=== PATIENT | male | born 1980 | race Caucasian/White ===

== ENCOUNTER → 2016-08-11 | Outpatient (CLI) | payer BC ==
[~2016-08-11] MED LIST: AMT50 PO; CBCI IV; CITA10TA4 PO; FINA1TAB3 PO; LEVO125T72 PO
--- NOTE | 2016-08-11 10:28 | DIAGNOSTIC IMAGING REPORT ---
ULTRASOUND OF THE SPLEEN CLINICAL HISTORY: Left upper quadrant abdominal pain. COMPARISON STUDY: No priors. FINDINGS: Real-time, grayscale, and color flow sonography of the spleen is performed. The spleen is normal in size and homogeneous in echotexture, measuring 10.4 cm in length. No splenic lesion is seen. There is no perisplenic fluid. The splenic vessels at the hilum appear patent. A 1.6 cm simple cyst is incidentally noted in the adjacent left kidney. IMPRESSION: Unremarkable sonographic assessment of the spleen. Electronically signed by: Aaron Abreu M.D. 08/11/2016 10:27 AM Dictated Date/Time: 08/11/2016 10:26 AM
== END | disposition home or self-care (01) ==
LOC: C.ULTRBC 10:06
PROVIDERS: ATTEND Nurse Practitioner Family
DX: R10.12 Left upper quadrant pain (principal)

== ENCOUNTER 2021-05-10 12:26 | Inpatient (IN) ==
--- NOTE | 2021-05-10 13:09 | Emergency Department Note ---
Impression & Plan Bursitis, olecranon, Cellulitis of left elbow, History of staph infection ED Provider Note CHIEF COMPLAINT: L elbow pain/swelling HISTORY OF PRESENT ILLNESS: Gordo Lombardi is a 41 year old male with history of previous staph infections who presents to the Emergency Department for evaluation of pain and swelling to his left elbow which he noticed when he woke up this morning. Currently, he rates his discomfort as a 6/10 which worsens with attempts of movement and to palpation of the area. The patient denies sustaining any injuries to his elbow and states that it was not painful or swollen before he went to bed last night. He also does not believe that he was bitten by any insects. The patient does have history of staph infections two previous times and states that he received treatment with IV Daptomycin x 3 weeks a few years ago. He states that his symptoms feel similar to that time. The patient states that he hasn't been feeling well over the past few days but thought that it was due to not getting enough sleep. He did develop a fever of 38C today which he states is high for him. He otherwise denies chest pain, palpitations, shortness of breath, abdominal pain, nausea, vomiting, diarrhea or urinary symptoms. REVIEW OF SYSTEMS: 10 systems were reviewed and were negative unless otherwise stated in HPI as above PHYSICAL EXAM: VITALS: Vitals are noted on the nurse's note and reviewed by myself. Mildly tachycardic 110 BPM and hypertensive 147/92, otherwise stable. General: Resting in chair, appears uncomfortable HEENT: Normocephalic, PERRL, EOMI, mucous membranes moist, oropharynx clear Neck: Non-tender, ROM intact without pain Resp: Good inspiratory effort on room air, lung sounds clear bilaterally CV: Regular rate and rhythm, peripheral pulses palpated Abd: Soft, non-tender Integumentary/MSK: Left elbow is edematous with overlying erythema. Fluctuant and tender to palpation. Edema appears to be tracking up into the upper arm but no lymphangitis. Warm to the touch. ROM limited secondary to pain. Left shoulder, forearm, wrist and hand are nontender and ROM remains intact here without pain or difficulty. Radial pulse and sensation intact. There is a small superficial abrasion to the dorsal aspect of the left wrist without surrounding erythema or edema. No other appreciable rashes or wounds, moving all other extremities without apparent pain or difficulty Neuro: Awake, alert and oriented x 3, interacting and answering questions appropriately Differential diagnosis includes fracture, dislocation, subluxation, cellulitis, bursitis, septic joint, Lyme disease among others were considered. EMERGENCY DEPARTMENT COURSE: Physical exam and history were performed. Nursing triage notes, EMR, and medication list were personally reviewed. Vital signs were reviewed. He was mildly tachycardic with a heart rate of 110 bpm, mildly hypertensive with BP 147/92. Remains afebrile 30 6.8C, maintaining oxygen saturations at 96% on room air with resp 20/min. Patient appears to have increased pain and swelling to his left elbow which he noticed when he woke up this morning. No known injuries or insect bites. Of note, he did state that he has been feeling generally unwell over the past few days and had a temperature of 38C today. He does have a history of staph infection for which he previously received IV daptomycin x3 weeks several years ago. See exam as above. The patient was offered pain medication but declined at this time. IV access was established and labs were reviewed by myself as below. Of note, he did have a leukocytosis with a WBC of 11.39. No concerns for anemia with hemoglobin 15.0. Electrolytes WNL. Renal indices stable. LFTs nondiagnostic. Lactate not elevated 0.5. ESR WNL at 3. CRP mildly elevated at 0.71. X-ray of the elbow was obtained and reviewed by radiologist and myself as below. This was negative for acute osseous pathology or intra-articular effusion to suggest septic arthritis, however there was characteristics of olecranon bursitis. This is concerning for possible septic bursitis given his clinical findings and history of previous staph infection. I discussed the above findings with my attending, Dr. Mckinney, who was involved throughout the patient's course of care, the patient will benefit from continued treatment with IV antibiotics. The patient agreed with this treatment plan. IV Rocephin 2g and Vancomycin 2g was ordered. Dr. Colon of the [facility] Hospitalist group was contacted and agreed to evaluate the patient for further management. Dr. Colon of Orthopedics was also consulted. The patient verbalized his understanding and agreement with the treatment plan a s above. The chart was completed utilizing [employer] Voice Recognition Software. Grammatical errors, random word insertions, pronoun errors, and incomplete sentences are an occasional consequence of this system due to software limitations, ambient noise, and hardware issues. Any formal questions or concerns about the content, text, or information contained within the body of this dictation should be directly addressed to the provider for clarification. Past Med/Surg History Medical History ADHD Alopecia Anxiety Depression Gram positive septicemia Hypothyroidism Surgical History No history of previous surgery No pertinent past surgical history Social History Smoking Status: Never smoker Feels Safe at Home: Yes Allergies Allergies Allergy/AdvReac Type Severity Reaction Status Date / Time Bactrim Allergy Intermediate became Unverified 08/21/15 22:55 completely red sulfamethoxazole [Bactrim] Allergy Intermediate became Unverified 05/10/21 14:52 completely red trimethoprim [Bactrim] Allergy Intermediate became Unverified 05/10/21 14:52 completely red Home Meds Home Medications Medication Instructions Recorded Confirmed dextroamphetamine-amphetamine 20 20 mg PO TID 01/16/21 05/10/21 mg tablet finasteride 1 mg tablet 1 mg PO QAM 01/16/21 05/10/21 levothyroxine 137 mcg tablet 137 mcg PO QAM 01/16/21 05/10/21 Results & Data (ED) Vital Signs Vital Signs - 24 hr 05/10/21 12:30 05/10/21 13:36 05/10/21 14:00 Temperature 36.8 C Temperature Source Temporal Artery Scan Pulse Rate 110 H 99 H 95 H Pulse Rate from SpO2 Sensor 97 H 99 H Pulse Rhythm Regular Pulse Strength Normal Respiratory Rate 20 20 15 Respiratory Effort / Characteristics Non-Labored Respiratory Depth Normal Blood Pressure 147/92 H 134/87 Blood Pressure Mean 110 102 Blood Pressure Position Sitting Pulse Oximetry 96 97 96 Oxygen Delivery Method Room Air Sepsis Recent Fever Within 48 Hours Yes Sepsis New/Unexplained Change in Mental Status N/A Sepsis Action Taken by Nursing No Action Required Laboratory Data Result diagrams: 05/10/21 13:29 05/10/21 13:29 Lab Results 05/10/21 05/10/21 05/10/21 Range/Units 13:29 13:29 13:29 WBC 11.39 H (4.8-10.8) K/uL RBC 4.68 L (4.7-6.1) M/uL Hgb 15.0 (14.0-18.0) g/dL Hct 42.8 (42-52) % MCV 91.5 (80-100) fL MCH 32.1 (25-34) pg MCHC 35.0 (32-36) g/dL RDW Std Deviation 46.3 (36.4-46.3) fL RDW Coeff of Cal[place] 13.9 (11.5-14.5) % Plt Count 219 (130-400) K/uL MPV 9.6 (7.4-10.4) fL Immature Gran % (Auto) 0.1 % Neut % (Auto) 71.5 % Lymph % (Auto) 17.3 % [place] % (Auto) 8.0 % Eos % (Auto) 2.8 % Baso % (Auto) 0.3 % Neut # (Auto) 8.15 H (1.4-6.5) K/uL Lymph # (Auto) 1.97 (1.2-3.4) K/uL [place] # (Auto) 0.91 H (0.11-0.59) K/uL Eos # (Auto) 0.32 (0-0.5) K/uL Baso # (Auto) 0.03 (0-0.2) K/uL Immature Gran # (Auto) 0.01 (0.00-0.02) K/uL ESR 3 (0-15) mm/hr Sodium 137 (136-145) mmol/L Potassium 3.7 (3.5-5.1) mmol/L Chloride 105 (98-107) mmol/L Carbon Dioxide 24 (21-32) mmol/L Anion Gap 8.0 (3-11) BUN 23 H (7-18) mg/dl Creatinine 0.95 (0.6-1.4) mg/dl Est Cr Clr Drug Dosing Not Reportable Est GFR ( Amer) 116.4 ml/min Est GFR (Non-Af Amer) 100.4 ml/min BUN/Creatinine Ratio 24.2 H (10-20) Glucose 100 H (70-99) mg/dl Lactate (0.4-2.0) mmol/L Calcium 9.4 (8.5-10.1) mg/dl Total Bilirubin 0.6 (0.2-1) mg/dl AST 34 (15-37) U/L ALT 80 H (12-78) Alkaline Phosphatase 78 (45-117) U/L C-Reactive Protein 0.71 H (0-0.29) mg/dl Total Protein 7.9 (6.4-8.2) gm/dl Albumin 4.2 (3.4-5.0) gm/dl Globulin 3.7 (2.5-4.0) gm/dl Albumin/Globulin Ratio 1.1 (0.9-2) SARS-CoV-2, RNA, NAAT (NEGATIVE) 05/10/21 05/10/21 Range/Units 13:29 14:50 WBC (4.8-10.8) K/uL RBC (4.7-6.1) M/uL Hgb (14.0-18.0) g/dL Hct (42-52) % MCV (80-100) fL MCH (25-34) pg MCHC (32-36) g/dL RDW Std Deviation (36.4-46.3) fL RDW Coeff of [place] (11.5-14.5) % Plt Count (130-400) K/uL MPV (7.4-10.4) fL Immature Gran % (Auto) % Neut % (Auto) % Lymph % (Auto) % [place] % (Auto) % Eos % (Auto) % Baso % (Auto) % Neut # (Auto) (1.4-6.5) K/uL Lymph # (Auto) (1.2-3.4) K/uL [place] # (Auto) (0.11-0.59) K/uL Eos # (Auto) (0-0.5) K/uL Baso # (Auto) (0-0.2) K/uL Immature Gran # (Auto) (0.00-0.02) K/uL ESR (0-15) mm/hr Sodium (136-145) mmol/L Potassium (3.5-5.1) mmol/L Chloride (98-107) mmol/L Carbon Dioxide (21-32) mmol/L Anion Gap (3-11) BUN (7-18) mg/dl Creatinine (0.6-1.4) mg/dl Est Cr Clr Drug Dosing Est GFR ( Amer) ml/min Est GFR (Non-Af Amer) ml/min BUN/Creatinine Ratio (10-20) Glucose (70-99) mg/dl Lactate 0.5 (0.4-2.0) mmol/L Calcium (8.5-10.1) mg/dl Total Bilirubin (0.2-1) mg/dl AST (15-37) U/L ALT (12-78) Alkaline Phosphatase (45-117) U/L C-Reactive Protein (0-0.29) mg/dl Total Protein (6.4-8.2) gm/dl Albumin (3.4-5.0) gm/dl Globulin (2.5-4.0) gm/dl Albumin/Globulin Ratio (0.9-2) SARS-CoV-2, RNA, NAAT NEGATIVE (NEGATIVE) Administered Medications Discontinued Medications Ceftriaxone Sodium (Rocephin) 2,000 mg in 70 mls @ 140 mls/hr IV NOW STA Stop: 05/10/21 14:30 Last Admin: 05/10/21 14:21 Dose: 140 mls/hr Documented by: [id number] Imaging Data Radiologist's Impression: Elbow X-Ray 05/10/21 12:57 XR elbow LT 2V CLINICAL HISTORY: Edematous, painful. Cellulitis vs septic joint. COMPARISON STUDY: No previous studies for comparison. TECHNIQUE: 2 left elbow views FINDINGS: Bones: There is no evidence for an acute fracture or dislocation. There is no lytic or blastic lesion. Joints: The joint spaces are maintained. There is no evidence for an intra- articular effusion or elevation of the fat pads. The bones are in anatomic alignment. Soft tissues: There is diffuse subcutaneous swelling surrounding the elbow pa rticularly posteriorly. These findings are suspicious for the presence of olecranon bursitis. There is no radiopaque foreign body. IMPRESSION: No acute osseous pathology. No intra-articular effusion to suggest septic arthritis. Findings characteristic of olecranon bursitis are present. ACT 112: Negative or not required by law. Electronically signed by: Dl Gaytan M.D. 05/10/2021 1:17 PM Discharge Plan Visit Data Chief Complaint: Elbow Injury/Pain Stated Complaint: FEVER,SEVERE PAIN IN L ELBOW FEELS LIKE ABSCESS ED Provider: Mauricio Mckinney ED Midlevel Provider: Hoa Ospina Discharge Problem: Bursitis, olecranon, Cellulitis of left elbow, History of staph infection Patient Disposition: Admitted As Inpatient Forms Stand Alone Forms: [facility] Prescriptions Prescriptions: No Action levothyroxine 137 mcg tablet 137 mcg PO QAM RF: 0 dextroamphetamine-amphetamine 20 mg tablet 20 mg PO TID RF: 0 finasteride 1 mg tablet 1 mg PO QAM RF: 0 Referrals Referrals: Ann Prieto CRNP [Primary Care Provider] -
--- NOTE | 2021-05-10 13:19 | XRay Report ---
XR elbow LT 2V CLINICAL HISTORY: Edematous, painful. Cellulitis vs septic joint. COMPARISON STUDY: No previous studies for comparison. TECHNIQUE: 2 left elbow views FINDINGS: Bones: There is no evidence for an acute fracture or dislocation. There is no lytic or blastic lesion . Joints: The joint spaces are maintained. There is no evidence for an intra-articular effusion or elev ation of the fat pads. The bones are in anatomic alignment. Soft tissues: There is diffuse subcutaneous swelling surrounding the elbow particularly posteriorly. These findings are suspicious for the presence of olecranon bursitis. There is no radiopaque foreign body. IMPRESSION: No acute osseous pathology. No intra-articular effusion to suggest septic arthritis. Find ings characteristic of olecranon bursitis are present. ACT 112: Negative or not required by law. Electronically signed by: Dl Gaytan M.D. 05/10/2021 1:17 PM
[2021-05-10 13:42] LABS: Basophils # (auto) 0.03 K/uL (0-0.2); Basophils % (auto) 0.3 %; Eosinophils # (auto) 0.32 K/uL (0-0.5); Eosinophils % (auto) 2.8 %; Hematocrit (blood only) 42.8 % (42-52); Immature Granulocytes # (auto) 0.01 K/uL (0.00-0.02); Immature Granulocytes % (auto) 0.1 %; Lymphocytes # (auto) 1.97 K/uL (1.2-3.4); Lymphocytes % (auto) 17.3 %; Mean Corpuscular Hemoglobin 32.1 pg (25-34); Mean Corpuscular Volume 91.5 fL (80-100); Mean Platelet Volume 9.6 fL (7.4-10.4); Monocytes # (auto) 0.91 K/uL (0.11-0.59); Neutrophils # (auto) 8.15 K/uL (1.4-6.5); Neutrophils % (auto) 71.5 %; Platelet Count 219 K/uL (130-400); RDW Coefficient of Variation 13.9 % (11.5-14.5); RDW Standard Deviation 46.3 fL (36.4-46.3); Red Blood Count 4.68 M/uL (4.7-6.1); White Blood Count 11.39 K/uL (4.8-10.8)
[2021-05-10 13:59] LABS: Alanine Aminotransferase 80 (12-78); Albumin Level 4.2 gm/dl (3.4-5.0); Aspartate Aminotransferase 34 U/L (15-37); BUN Creatinine Ratio 24.2 (10-20); Blood Urea Nitrogen 23 mg/dl (7-18); Calcium 9.4 mg/dl (8.5-10.1); Carbon Dioxide 24 mmol/L (21-32); Chloride 105 mmol/L (98-107); Est GFR (African American) 116.4 ml/min; Est GFR (Non-African American) 100.4 ml/min; Glucose 100 mg/dl (70-99); Potassium 3.7 mmol/L (3.5-5.1); Sodium 137 mmol/L (136-145)
[2021-05-10] MEDS ORDERED: cefTRIAXone SODIUM 2,000 MG/70 ML BAG IV STA (14:01)
[2021-05-10] MEDS ORDERED: VANCOMYCIN CONSULT ACTIVE PRN ×2 (14:01→17:55)
[2021-05-10] MEDS ORDERED: VANCOMYCIN HCL 2,000 MG in SODIUM CHLORIDE 0.9% 250 ML IV STA (14:01)
[2021-05-10 14:02] LABS: Albumin Globulin Ratio 1.1 (0.9-2); Alkaline Phosphatase 78 U/L (45-117); Bilirubin,Total 0.6 mg/dl (0.2-1); C Reactive Protein 0.71 mg/dl (0-0.29); Globulin 3.7 gm/dl (2.5-4.0); Total Protein 7.9 gm/dl (6.4-8.2)
--- NOTE | 2021-05-10 14:57 | History & Physical Report ---
Date of Service May 10, 2021 Assessment & Plan (1) Septic olecranon bursitis of left elbow: Plan: Patient with presumed septic olecranon bursitis of the left elbow. Developed acutely several hours ago. No trauma, no skin breaks. He has history of prior staphylococcal skin/soft tissue infection and has been treated with IV antibiotics for this in the past. He is afebrile at present but endorses fever of 38 prior to arrival. HD stable and non-toxic in appearance. Labs are significant for mild neutrophil predominant leukocytosis with WBC=11.39 CRP=0.71 The elbow was aspirated in the ER by Ortho. Fluid was slightly inflammatory - was sent for gram stain, culture and cell count as well as crystal analysis. Orthopedics appreciated -Observation to medical -Follow cultures, gram stain, cell count and crystal analysis -Continue Vancomycin -Tylenol and Ibuprofen PRN pain -Maintain arm in sling (2) ADHD: Plan: Chronic -Continue home dextroamphetamine (3) Hypothyroidism: Plan: Chronic -Continue Synthroid Plan: Patient mentioned some bright red blood in stool after wiping. Has had this in the past. Denies constipation but only has a BM q 2-3 days. No abdominal pain, change in stool He is to address this issue with his PCP and is comfortable doing so History of Present Illness Chief Complaint: left elbow swelling, pain Primary Care Provider: SABINA Gonsalves Gordo Lombardi is a 41yo male presenting with acute swelling and pain of the left elbow. Patient states he has been feeling slightly ill for the last couple days, fatigued with poor sleep. He developed acute pain in his left elbow overnight last night. When he woke he noted significant swelling, redness, fluctuance and pain in his left elbow. He had a fever x 1 prior to arrival measured at 38. No additional complaints Patient with history of staph infections. In 2014 he had what he thought to be a spider bite on his left thigh and developed a large abscess. He was treated with Bactrim DS and subsequently developed a rash. He was admitted to [facility] in August 2015 for septic arthritis of the right knee with superficial cellulitis and abscess. He was evaluated by ID and treated with Daptomycin inpatient and discharged with a PICC line to complete the antibiotic course. He had a TTE performed which was negative for vegetation. Upon arrival to the ER patient afebrile, HD stable, NAD ER Course: Ceftriaxone, Vancomycin Allergies Allergy/AdvReac Type Severity Reaction Status Date / Time Bactrim Allergy Intermediate became Unverified 08/21/15 22:55 completely red sulfamethoxazole [Bactrim] Allergy Intermediate became Unverified 05/10/21 14:52 completely red trimethoprim [Bactrim] Allergy Intermediate became Unverified 05/10/21 14:52 completely red Home Medications Medication Instructions Recorded Confirmed Type dextroamphetamine-amphetamine 20 20 mg PO TID 01/16/21 05/10/21 History mg tablet finasteride 1 mg tablet 1 mg PO QAM 01/16/21 05/10/21 History levothyroxine 137 mcg tablet 137 mcg PO QAM 01/16/21 05/10/21 History Past Med/Surg History Medical History (Updated 05/10/21 @ 17:40 by Oscar Colon MD) ADHD Alopecia Anxiety Depression Gram positive septicemia Hypothyroidism Septic olecranon bursitis of left elbow Surgical History No history of previous surgery No pertinent past surgical history Social History Smoking Status: Never smoker Feels Safe at Home: Yes Review of Systems Review of Systems: All systems reviewed & are unremarkable except as noted in HPI & below Physical Exam Physical Exam: General: patient resting comfortably, NAD, non-toxic in appearance, AA&O x 4 Skin: warm, dry, intact HEENT: NC/AT, PERRL, EOMI, anicteric sclera, conjunctiva without injection, external ear normal to inspection and nontender, nares patent, moist mucus membranes, dentition intact, no oropharyngeal lesions, neck supple, trachea midline, no LAD, no thyromegaly, no JVD Heart: +S1/S2, regular, no m/r/g Lungs: equal air entry bilaterally, no rales/rhonchi/wheezes Abd: +BS, soft, NT/ND, no masses/organomegaly/ascites Ext: warm, 2+ pulses in UE/LE bilaterally, no clubbing/cyanosis or edema Neuro: nonfocal, patient AA&O x 4, speech intact, no facial droop, moving all extremities on command with equal strength 5/5 Left elbow with redness, swelling and fluctuance, tenderness to palpation Full ROM with minimal discomfort with movement No streaking, crepitus, bullae Results & Data Results & Data ([facility]) Vital Signs (Past 12 Hours) Vital Signs Temp Pulse Resp BP Pulse Ox 05/10/21 14:00 95 H 15 134/87 96 05/10/21 13:36 99 H 20 97 05/10/21 12:30 36.8 C 110 H 20 147/92 H 96 Laboratory Results Laboratory Results WBC 11.39 K/uL (4.8-10.8) H 05/10/21 13:29 RBC 4.68 M/uL (4.7-6.1) L 05/10/21 13:29 Hgb 15.0 g/dL (14.0-18.0) 05/10/21 13:29 Hct 42.8 % (42-52) 05/10/21 13:29 MCV 91.5 fL (80-100) 05/10/21 13:29 MCH 32.1 pg (25-34) 05/10/21 13:29 MCHC 35.0 g/dL (32-36) 05/10/21 13:29 RDW Std Deviation 46.3 fL (36.4-46.3) 05/10/21 13:29 RDW Coeff of Cali 13.9 % (11.5-14.5) 05/10/21 13:29 Plt Count 219 K/uL (130-400) 05/10/21 13:29 MPV 9.6 fL (7.4-10.4) 05/10/21 13:29 Immature Gran % (Auto) 0.1 % 05/10/21 13:29 Neut % (Auto) 71.5 % 05/10/21 13:29 Lymph % (Auto) 17.3 % 05/10/21 13:29 [place] % (Auto) 8.0 % 05/10/21 13:29 Eos % (Auto) 2.8 % 05/10/21 13:29 Baso % (Auto) 0.3 % 05/10/21 13:29 Neut # (Auto) 8.15 K/uL (1.4-6.5) H 05/10/21 13:29 Lymph # (Auto) 1.97 K/uL (1.2-3.4) 05/10/21 13:29 Gordon # (Auto) 0.91 K/uL (0.11-0.59) H 05/10/21 13:29 Eos # (Auto) 0.32 K/uL (0-0.5) 05/10/21 13:29 Baso # (Auto) 0.03 K/uL (0-0.2) 05/10/21 13:29 Immature Gran # (Auto) 0.01 K/uL (0.00-0.02) 05/10/21 13:29 ESR 3 mm/hr (0-15) 05/10/21 13:29 Sodium 137 mmol/L (136-145) 05/10/21 13:29 Potassium 3.7 mmol/L (3.5-5.1) 05/10/21 13:29 Chloride 105 mmol/L (98-107) 05/10/21 13:29 Carbon Dioxide 24 mmol/L (21-32) 05/10/21 13:29 Anion Gap 8.0 (3-11) 05/10/21 13:29 BUN 23 mg/dl (7-18) H 05/10/21 13:29 Creatinine 0.95 mg/dl (0.6-1.4) 05/10/21 13:29 Est Cr Clr Drug Dosing Not Reportable 05/10/21 13:29 Est GFR ( Amer) 116.4 ml/min 05/10/21 13:29 Est GFR (Non-Af Amer) 100.4 ml/min 05/10/21 13:29 BUN/Creatinine Ratio 24.2 (10-20) H 05/10/21 13:29 Glucose 100 mg/dl (70-99) H 05/10/21 13:29 Lactate 0.5 mmol/L (0.4-2.0) 05/10/21 13:29 Calcium 9.4 mg/dl (8.5-10.1) 05/10/21 13:29 Total Bilirubin 0.6 mg/dl (0.2-1) 05/10/21 13:29 AST 34 U/L (15-37) 05/10/21 13:29 ALT 80 (12-78) H 05/10/21 13:29 Alkaline Phosphatase 78 U/L (45-117) 05/10/21 13:29 C-Reactive Protein 0.71 mg/dl (0-0.29) H 05/10/21 13:29 Total Protein 7.9 gm/dl (6.4-8.2) 05/10/21 13:29 Albumin 4.2 gm/dl (3.4-5.0) 05/10/21 13:29 Globulin 3.7 gm/dl (2.5-4.0) 05/10/21 13:29 Albumin/Globulin Ratio 1.1 (0.9-2) 05/10/21 13:29 Fluid Comment 05/10/21 17:37 SARS-CoV-2, RNA, NAAT NEGATIVE (NEGATIVE) 05/10/21 14:50 Impressions Elbow X-Ray 05/10/21 12:57 XR elbow LT 2V CLINICAL HISTORY: Edematous, painful. Cellulitis vs septic joint. COMPARISON STUDY: No previous studies for comparison. TECHNIQUE: 2 left elbow views FINDINGS: Bones: There is no evidence for an acute fracture or dislocation. There is no lytic or blastic lesion. Joints: The joint spaces are maintained. There is no evidence for an intra- articular effusion or elevation of the fat pads. The bones are in anatomic alignment. Soft tissues: There is diffuse subcutaneous swelling surrounding the elbow particularly posteriorly. These findings are suspicious for the presence of olecranon bursitis. There is no radiopaque foreign body. IMPRESSION: No acute osseous pathology. No intra-articular effusion to suggest septic arthritis. Findings characteristic of olecranon bursitis are present. ACT 112: Negative or not required by law. Electronically signed by: Dl Gaytan M.D. 05/10/2021 1:17 PM PG Care Time/CCT Total # of Minutes Spent Total Time Spent with Patient: Total time spent is greater than 50% in coordination of care (as documented) at patient's floor/unit and/or counseling patient: Coding Level of Care Code INT OBSERVATION CARE 50M LVL 2 Diagnoses Septic olecranon bursitis of left elbow M71.122 ADHD F90.9 Hypothyroidism E03.9
[2021-05-10] MEDS ORDERED: VANCOMYCIN HCL 2,000 MG in SODIUM CHLORIDE 0.9% 500 ML IV ONE (15:00)
--- NOTE | 2021-05-10 17:26 | Orthopedic Consultation ---
Date of Service May 10, 2021 Assessment & Plan (1) Septic olecranon bursitis of left elbow: I going to aspirate his olecranon bursa here in the ER. He is can be admitted to the medicine service for some IV antibiotics. This is a fairly short duration with a normal sed rate and just slightly elevated C-reactive protein suggested that this just started. I think there is a good chance this will resolve with IV antibiotics alone. The fluid that we atul out of his olecranon bursa was not pus but just slightly inflammatory. Will send it off for a stat Gram stain aerobic anaerobic culture and the fluid for cell count with a differential and crystal analysis. We will give him a sling for comfort. Also immobilize his elbow in the sling. I think it is unlikely he is going need surgery but will follow him daily. Any orthopedic questions can be directly at [phone]. The patient's left elbow was prepped with alcohol. I aspirated the left olecranon bursa for about 5 cc of slightly to the best moderately inflammatory fluid. It was not pus. An Markie bandage was applied. Patient tolerated procedure well and there were no complications. History of Present Illness Reason for Consultation: . Left elbow pain and swelling Requesting Physician: . . 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 No pre-existing trauma. No history of trauma to this elbow or lacerations. He was in the emergency room and he is being admitted for septic olecranon bursitis. We are asked to consult. Patient does have a history of a methicillin sensitive staph felt worse infection to his left leg after spider bite about 5 years ago. He does report a fever before coming. He did get some antibiotics in the ER here and says his elbow is feeling some better already. Allergies Allergy/AdvReac Type Severity Reaction Status Date / Time Bactrim Allergy Intermediate became Unverified 08/21/15 22:55 completely red sulfamethoxazole [Bactrim] Allergy Intermediate became Unverified 05/10/21 14:52 completely red trimethoprim [Bactrim] Allergy Intermediate became Unverified 05/10/21 14:52 completely red Home Medications Medication Instructions Recorded Confirmed Type dextroamphetamine-amphetamine 20 20 mg PO TID 01/16/21 05/10/21 History mg tablet finasteride 1 mg tablet 1 mg PO QAM 01/16/21 05/10/21 History levothyroxine 137 mcg tablet 137 mcg PO QAM 01/16/21 05/10/21 History Past Med/Surg History Medical History (Updated 05/10/21 @ 17:40 by Oscar Colon MD) ADHD Alopecia Anxiety Depression Gram positive septicemia Hypothyroidism Septic olecranon bursitis of left elbow Surgical History No history of previous surgery No pertinent past surgical history Social History Smoking Status: Never smoker Feels Safe at Home: Yes Review of Systems All systems reviewed & are unremarkable except as noted in HPI & below. Physical Exam . Physical examination is a pleasant healthy-appearing 41-year-old male. He is lying in bed in no acute distress. Examination left elbow reveals obvious moderately swollen elbow with some redness posteriorly. He is got a little bit of fluctuance to the bursa. He is got full elbow motion with some moderate pain. There is no progressive ascending cellulitis. He is neurologically intact. Results & Data Results & Data Laboratory Results . Laboratory results reveal a white cell count of slightly elevated 11.39. His sed rate is normal and the C-reactive protein just slightly elevated at 0.71 Diagnostic Findings . X-rays of the left elbow were reviewed. Shows a fairly normal elbow joint. There is no elbow joint effusion. He does have some soft tissue swelling posteriorly consistent with olecranon bursitis. PG Care Time/CCT Total # of Minutes Spent Total Time Spent with Patient: Total time spent is greater than 50% in coordination of care (as documented) at patient's floor/unit and/or counseling patient: Coding Level of Care Code 61034 Inpt Consult Level 4 Diagnoses Septic olecranon bursitis of left elbow M71.122
[2021-05-10] MEDS ORDERED: DOCUSATE SODIUM 100 MG CAP PO PRN (17:55)
[2021-05-10] MEDS ORDERED: ACETAMINOPHEN 325 MG TAB PO PRN (17:55)
[2021-05-10] MEDS: IBUPROFEN 600 MG TAB PO SCH (18:37)
[2021-05-10 19:37] LABS: Appearance Synovial Fluid BLOODY; Color Synovial Fluid AMBER; RBC Synovial Fluid (A) 37000 /uL; Source Synovial Fluid ELBOW; WBC Synovial Fluid (A) 55232 /ul (0-200)
[2021-05-10 19:38] LABS: Mononuclear WBC Synovial 41.3 %; Polynuclear WBC Synovial 58.7 %
--- NOTE | 2021-05-10 19:40 | Pharmacy Report ---
Pharmacy Vanc AUC Short Note - Date of Service May 10, 2021 - Assessment & Plan Assessment 41 year old M receiving Vancomycin for treatment of left elbow bursitis. * Patient has a history of MSSA infection in his leg from a spider bite approximately 5 years ago that required IV antibiotics. * Ortho aspirated 5 cc of inflammatory fluid from left elbow. Was sent for cultures, cell count and crystal analysis. Plan Vancomycin * AUC/PEDRO LUIS is the preferred PK/PD target for vancomycin * AUC guided dosing is effective and associated with decreased risk of nephrotoxicity compared to traditional trough targets * Loading Dose: 2000 mg IV x 1 * Maintenance Dose: 1000 mg IV every 8 hours * Expected to achieve steady-state AUC/PEDRO LUIS and trough of 590 mg/L.hr and 20 mcg/mL, respectively. Associated with a 17% risk of nephrotoxicity. * Trough level ordered for 05/12/21 prior to 0800 dose Pharmacy will continue to follow and will adjust dose/frequency as necessary. Thank you.
[2021-05-10] MEDS: AMPHETAMINE ASP/SULF/DEXTRAMPH 20 MG TAB PO SCH ×2 (21:37→21:41)
[2021-05-11] MEDS: VANCOMYCIN HCL 1,000 MG in SODIUM CHLORIDE 0.9% 250 ML IV SCH ×4 (00:25→23:42)
[2021-05-11] MEDS: IBUPROFEN 600 MG TAB PO SCH ×3 (02:06→16:09)
[2021-05-11] MEDS: LEVOTHYROXINE SODIUM 137 MCG TABLET PO SCH (06:10)
[2021-05-11 07:28] LABS: Basophils # (auto) 0.02 K/uL (0-0.2); Basophils % (auto) 0.2 %; Eosinophils # (auto) 0.06 K/uL (0-0.5); Eosinophils % (auto) 0.6 %; Hematocrit (blood only) 42.6 % (42-52); Hemoglobin 14.9 g/dL (14.0-18.0); Immature Granulocytes # (auto) 0.01 K/uL (0.00-0.02); Immature Granulocytes % (auto) 0.1 %; Lymphocytes # (auto) 1.87 K/uL (1.2-3.4); Lymphocytes % (auto) 18.4 %; Mean Corpuscular Hemoglobin 31.8 pg (25-34); Mean Platelet Volume 9.7 fL (7.4-10.4); Monocytes # (auto) 1.15 K/uL (0.11-0.59); Monocytes % (auto) 11.3 %; Neutrophils # (auto) 7.04 K/uL (1.4-6.5); Neutrophils % (auto) 69.4 %; Platelet Count 190 K/uL (130-400); RDW Coefficient of Variation 13.7 % (11.5-14.5); Red Blood Count 4.68 M/uL (4.7-6.1); White Blood Count 10.15 K/uL (4.8-10.8)
[2021-05-11] MEDS: AMPHETAMINE ASP/SULF/DEXTRAMPH 20 MG TAB PO SCH ×3 (07:50→21:00)
[2021-05-11 08:04] LABS: BUN Creatinine Ratio 13.7 (10-20); Calcium 8.5 mg/dl (8.5-10.1); Creatinine Clr Calc Pharmacy 124.3 ml/min; Est GFR (Non-African American) 104.4 ml/min; Potassium 3.2 mmol/L (3.5-5.1)
--- NOTE | 2021-05-11 08:43 | Progress Notes ---
DATE OF SERVICE: 05/11/2021. SUBJECTIVE: A 41-year-old gentleman admitted last evening with a septic left olecranon bursitis. He is doing better this morning. Pain is improved, but still present. Had a pretty good night otherwi se. No new complaints. OBJECTIVE: VITAL SIGNS: Temperature 37.4. Vital signs are stable. GENERAL: Shows a pleasant middle-aged male. He is in bed and looks pretty comfortable. EXTREMITIES: Examination of the left elbow does reveal some cellulitis around the olecranon. A armen le bit of bogginess to it. There is no new fluid accumulation. He can flex and extend his elbow wit h some moderate pain at best. No active drainage. LABORATORY DATA: Cell count on the fluid analysis 50,000 white cells with 58% polys. Gram stain was no organisms, moderate WBCs. Culture results are pending. ASSESSMENT: A 41-year-old male with a left septic olecranon bursitis. Caught very early as his sed rate is normal. C-reactive protein is just slightly elevated. Clearly infected. No obvious new flu id accumulation. Does seem to be improving clinically. PLAN: At this point, we will continue on the IV antibiotics. I think another 24 hours of antibiotic s IV and probably can be switched to p.o. There is no need for aspiration of his elbow today. We wi ll check him tomorrow. Hopeful discharge tomorrow on p.o. antibiotics. Hopefully, we may have some culture results by then as well. I will check on him tomorrow morning. Any orthopedic questions can be directed to me at [phone]. Job ID: [id number]
--- NOTE | 2021-05-11 09:04 | Hospitalist Progress Note ---
Date of Service May 11, 2021 Assessment & Plan (1) Septic olecranon bursitis of left elbow: Plan: Patient with presumed septic olecranon bursitis of the left elbow. Developed acutely several hours ago. No trauma, no skin breaks. He has history of prior staphylococcal skin/soft tissue infection and has been treated with IV antibiotics/PICC for this in the past. In ER, afebrile but noted temp 38C [employer], HD stable and non-toxic in appearance CRP 0.71 (ESR wnl 3), WBC 11.3k on admit Temp max 39.1C 05/10 overnight Continue Vanco/Ceftriaxone (day 2, started 05/10) Blood cultures pending Ortho consulted --> aspirated 05/10 & reported fluid was slightly inflammatory - was sent for gram stain, culture and cell count as well as crystal analysis. --> sudheer/bloody, elevated WBC 34991. Synovial crystals pending. Does not feel will require surgery but following along daily currently GS from drainage by ortho 05/10 pending -- no organisms, moderate WBC seen. Cx pin-point growth, re-incubating --> FOLLOW Pain control, supportive care Continue arm sling Continue to monitor -- he is hopeful for d/c on oral abx tomorrow (2) Hypothyroidism: Plan: Chronic. No prior TSH in our system, but follows with [facility] Continue Synthroid 137mcg daily (3) Hypokalemia: Plan: 3.2 on am labs, mag wnl PO replacement ordered BMP in AM (4) Constipation: Plan: Patient mentioned some bright red blood in stool after wiping on admission, and had reported this in the past. Denied constipation but reported BM every 2-3 days. F/u PCP recommended, also would rec checking TSH given hypothyroidism which could be contributing to "constipation", however suspect more hemorrhoidal bleeding no further bleeding reported --> rec f/u with PCP if continued. Will need to see if ever had c-scope in past/family history of issues (5) ADHD: Plan: Chronic -Continue home dextroamphetamine Plan: continued inpatient stay on abx, change to full admit patient hopeful cx resulted tomorrow and possible d/c on oral abx Admission and Anticipated Discharge Date Admission Date: May 10, 2021 Supervising Physician Co-Signing Physician Notes PA Supervision Note: I did not personally see or examine the patient today, but I verified all cheney points of NANCY Roldan's assessment and plan with the following exceptions/additions: None Subjective patient evaluated this morning. pain about the same but improved from prior to admission seen by ortho this morning and told bacterial infection and to wait on cultures. fever last night but nothing this morning. sensation intact. no chest pain, shortness of breath, abdominal pain, nausea or vomiting. hopeful for d/c tomorrow on oral antibiotics. Review of Systems Review of Systems: All systems reviewed & are unremarkable except as noted in HPI & below Physical Exam Physical Exam: General: patient resting comfortably, NAD, non-toxic in appearance, AA&O , laying on side sleeping in bed HEENT: Normocephalic, atraumatic, mmm, pupils equal, early male pattern baldness CV: RRR, no m/r/g, no edema Resp: CTAB, no w/c/r, on room air GI: +BS throughout, soft, nontender : no hewitt Psych AOx3, cooperative MSK/Neuro: LEFT elbow with erythema, decreased swelling/fluctuance, wrapped with marni bandage, fingers mobile, NVI. ROM intact with minimal discomfort reported Skin: warm, dry, intact Results & Data Results & Data ([facility]) Vital Signs (Past 12 Hours) Vital Signs Temp Pulse Resp BP Pulse Ox 05/11/21 07:40 37.4 C 98 H 16 108/70 97 05/11/21 00:30 38.4 C H 05/10/21 23:01 39.1 C H 110 H 16 144/71 H 95 05/10/21 21:43 37.9 C H Laboratory Results 05/11/21 05/11/21 05/10/21 Range/Units 06:55 06:55 20:00 WBC 10.15 (4.8-10.8) K/uL RBC 4.68 L (4.7-6.1) M/uL Hgb 14.9 (14.0-18.0) g/dL Hct 42.6 (42-52) % MCV 91.0 (80-100) fL MCH 31.8 (25-34) pg MCHC 35.0 (32-36) g/dL RDW Std Deviation 45.0 (36.4-46.3) fL RDW Coeff of Cali 13.7 (11.5-14.5) % Plt Count 190 (130-400) K/uL MPV 9.7 (7.4-10.4) fL Immature Gran % (Auto) 0.1 % Neut % (Auto) 69.4 % Lymph % (Auto) 18.4 % [place] % (Auto) 11.3 % Eos % (Auto) 0.6 % Baso % (Auto) 0.2 % Neut # (Auto) 7.04 H (1.4-6.5) K/uL Lymph # (Auto) 1.87 (1.2-3.4) K/uL [place] # (Auto) 1.15 H (0.11-0.59) K/uL Eos # (Auto) 0.06 (0-0.5) K/uL Baso # (Auto) 0.02 (0-0.2) K/uL Immature Gran # (Auto) 0.01 (0.00-0.02) K/uL ESR (0-15) mm/hr Sodium 137 (136-145) mmol/L Potassium 3.2 L (3.5-5.1) mmol/L Chloride 107 (98-107) mmol/L Carbon Dioxide 23 (21-32) mmol/L Anion Gap 7.0 (3-11) BUN 13 (7-18) mg/dl Creatinine 0.92 (0.6-1.4) mg/dl Est Cr Clr Drug Dosing 124.3 Est GFR ( Amer) 121.0 ml/min Est GFR (Non-Af Amer) 104.4 ml/min BUN/Creatinine Ratio 13.7 (10-20) Glucose 105 H (70-99) mg/dl Lactate (0.4-2.0) mmol/L Calcium 8.5 (8.5-10.1) mg/dl Total Bilirubin (0.2-1) mg/dl AST (15-37) U/L ALT (12-78) Alkaline Phosphatase (45-117) U/L C-Reactive Protein (0-0.29) mg/dl Total Protein (6.4-8.2) gm/dl Albumin (3.4-5.0) gm/dl Globulin (2.5-4.0) gm/dl Albumin/Globulin Ratio (0.9-2) Fluid Comment Synovial Source Synovial Color Synovial Appearance Synovial WBC (0-200) /ul Synovial RBC /uL Synovial Polynuclear % % Synovial Mononuclear % % Synovial Crystals Nasal Screen MRSA (PCR) Negative (Negative) SARS-CoV-2, RNA, NAAT (NEGATIVE) 05/10/21 05/10/21 05/10/21 Range/Units 17:37 17:37 14:50 WBC (4.8-10.8) K/uL RBC (4.7-6.1) M/uL Hgb (14.0-18.0) g/dL Hct (42-52) % MCV (80-100) fL MCH (25-34) pg MCHC (32-36) g/dL RDW Std Deviation (36.4-46.3) fL RDW Coeff of Cal[place] (11.5-14.5) % Plt Count (130-400) K/uL MPV (7.4-10.4) fL Immature Gran % (Auto) % Neut % (Auto) % Lymph % (Auto) % [place] % (Auto) % Eos % (Auto) % Baso % (Auto) % Neut # (Auto) (1.4-6.5) K/uL Lymph # (Auto) (1.2-3.4) K/uL [place]on # (Auto) (0.11-0.59) K/uL Eos # (Auto) (0-0.5) K/uL Baso # (Auto) (0-0.2) K/uL Immature Gran # (Auto) (0.00-0.02) K/uL ESR (0-15) mm/hr Sodium (136-145) mmol/L Potassium (3.5-5.1) mmol/L Chloride (98-107) mmol/L Carbon Dioxide (21-32) mmol/L Anion Gap (3-11) BUN (7-18) mg/dl Creatinine (0.6-1.4) mg/dl Est Cr Clr Drug Dosing Est GFR ( Amer) ml/min Est GFR (Non-Af Amer) ml/min BUN/Creatinine Ratio (10-20) Glucose (70-99) mg/dl Lactate (0.4-2.0) mmol/L Calcium (8.5-10.1) mg/dl Total Bilirubin (0.2-1) mg/dl AST (15-37) U/L ALT (12-78) Alkaline Phosphatase (45-117) U/L C-Reactive Protein (0-0.29) mg/dl Total Protein (6.4-8.2) gm/dl Albumin (3.4-5.0) gm/dl Globulin (2.5-4.0) gm/dl Albumin/Globulin Ratio (0.9-2) Fluid Comment Synovial Source ELBOW Synovial Color SUDHEER Synovial Appearance BLOODY Synovial WBC 49592 H (0-200) /ul [place] [address] /uL Synovial Polynuclear % 58.7 % Synovial Mononuclear % 41.3 % Synovial Crystals Pending Nasal Screen MRSA (PCR) (Negative) SARS-CoV-2, RNA, NAAT NEGATIVE (NEGATIVE) 05/10/21 05/10/21 05/10/21 Range/Units 13:29 13:29 13:29 WBC (4.8-10.8) K/uL RBC (4.7-6.1) M/uL Hgb (14.0-18.0) g/dL Hct (42-52) % MCV (80-100) fL MCH (25-34) pg MCHC (32-36) g/dL RDW Std Deviation (36.4-46.3) fL RDW Coeff of Cal[place] (11.5-14.5) % Plt Count (130-400) K/uL MPV (7.4-10.4) fL Immature Gran % (Auto) % Neut % (Auto) % Lymph % (Auto) % [place] % (Auto) % Eos % (Auto) % Baso % (Auto) % Neut # (Auto) (1.4-6.5) K/uL Lymph # (Auto) (1.2-3.4) K/uL [place] # (Auto) (0.11-0.59) K/uL Eos # (Auto) (0-0.5) K/uL Baso # (Auto) (0-0.2) K/uL Immature Gran # (Auto) (0.00-0.02) K/uL ESR 3 (0-15) mm/hr Sodium 137 (136-145) mmol/L Potassium 3.7 (3.5-5.1) mmol/L Chloride 105 (98-107) mmol/L Carbon Dioxide 24 (21-32) mmol/L Anion Gap 8.0 (3-11) BUN 23 H (7-18) mg/dl Creatinine 0.95 (0.6-1.4) mg/dl Est Cr Clr Drug Dosing Not Reportable Est GFR ( Amer) 116.4 ml/min Est GFR (Non-Af Amer) 100.4 ml/min BUN/Creatinine Ratio 24.2 H (10-20) Glucose 100 H (70-99) mg/dl Lactate 0.5 (0.4-2.0) mmol/L Calcium 9.4 (8.5-10.1) mg/dl Total Bilirubin 0.6 (0.2-1) mg/dl AST 34 (15-37) U/L ALT 80 H (12-78) Alkaline Phosphatase 78 (45-117) U/L C-Reactive Protein 0.71 H (0-0.29) mg/dl Total Protein 7.9 (6.4-8.2) gm/dl Albumin 4.2 (3.4-5.0) gm/dl Globulin 3.7 (2.5-4.0) gm/dl Albumin/Globulin Ratio 1.1 (0.9-2) Fluid Comment Synovial Source Synovial Color Synovial Appearance Synovial WBC (0-200) /ul Synovial RBC /uL Synovial Polynuclear % % Synovial Mononuclear % % Synovial Crystals Nasal Screen MRSA (PCR) (Negative) SARS-CoV-2, RNA, NAAT (NEGATIVE) 05/10/21 Range/Units 13:29 WBC 11.39 H (4.8-10.8) K/uL RBC 4.68 L (4.7-6.1) M/uL Hgb 15.0 (14.0-18.0) g/dL Hct 42.8 (42-52) % MCV 91.5 (80-100) fL MCH 32.1 (25-34) pg MCHC 35.0 (32-36) g/dL RDW Std Deviation 46.3 (36.4-46.3) fL RDW Coeff of Cali 13.9 (11.5-14.5) % Plt Count 219 (130-400) K/uL MPV 9.6 (7.4-10.4) fL Immature Gran % (Auto) 0.1 % Neut % (Auto) 71.5 % Lymph % (Auto) 17.3 % Har[place] % (Auto) 8.0 % Eos % (Auto) 2.8 % Baso % (Auto) 0.3 % Neut # (Auto) 8.15 H (1.4-6.5) K/uL Lymph # (Auto) 1.97 (1.2-3.4) K/uL Har[place]on # (Auto) 0.91 H (0.11-0.59) K/uL Eos # (Auto) 0.32 (0-0.5) K/uL Baso # (Auto) 0.03 (0-0.2) K/uL Immature Gran # (Auto) 0.01 (0.00-0.02) K/uL ESR (0-15) mm/hr Sodium (136-145) mmol/L Potassium (3.5-5.1) mmol/L Chloride (98-107) mmol/L Carbon Dioxide (21-32) mmol/L Anion Gap (3-11) BUN (7-18) mg/dl Creatinine (0.6-1.4) mg/dl Est Cr Clr Drug Dosing Est GFR ( Amer) ml/min Est GFR (Non-Af Amer) ml/min BUN/Creatinine Ratio (10-20) Glucose (70-99) mg/dl Lactate (0.4-2.0) mmol/L Calcium (8.5-10.1) mg/dl Total Bilirubin (0.2-1) mg/dl AST (15-37) U/L ALT (12-78) Alkaline Phosphatase (45-117) U/L C-Reactive Protein (0-0.29) mg/dl Total Protein (6.4-8.2) gm/dl Albumin (3.4-5.0) gm/dl Globulin (2.5-4.0) gm/dl Albumin/Globulin Ratio (0.9-2) Fluid Comment Synovial Source Synovial Color Synovial Appearance Synovial WBC (0-200) /ul Synovial RBC /uL Synovial Polynuclear % % Synovial Mononuclear % % Synovial Crystals Nasal Screen MRSA (PCR) (Negative) SARS-CoV-2, RNA, NAAT (NEGATIVE) Diagnostic Findings Elbow X-Ray 05/10/21 12:57 XR elbow LT 2V CLINICAL HISTORY: Edematous, painful. Cellulitis vs septic joint. COMPARISON STUDY: No previous studies for comparison. TECHNIQUE: 2 left elbow views FINDINGS: Bones: There is no evidence for an acute fracture or dislocation. There is no lytic or blastic lesion. Joints: The joint spaces are maintained. There is no evidence for an intra- articular effusion or elevation of the fat pads. The bones are in anatomic alignment. Soft tissues: There is diffuse subcutaneous swelling surrounding the elbow particularly posteriorly. These findings are suspicious for the presence of olecranon bursitis. There is no radiopaque foreign body. IMPRESSION: No acute osseous pathology. No intra-articular effusion to suggest septic arthritis. Findings characteristic of olecranon bursitis are present. ACT 112: Negative or not required by law. Electronically signed by: Dl Gaytan M.D. 05/10/2021 1:17 PM PG Care Time/CCT Total # of Minutes Spent Total Time Spent with Patient: Total time spent is greater than 50% in coordination of care (as documented) at patient's floor/unit and/or counseling patient: Coding Level of Care Code 84985 Subseq Obs Care Lvl 2 Diagnoses Septic olecranon bursitis of left elbow M71.122 ADHD F90.9 Hypothyroidism E03.9 Hypokalemia E87.6 Constipation K59.00
[2021-05-11] MEDS ORDERED: POTASSIUM CHLORIDE CRTAB 20 MEQ TABCR PO STA (09:08)
[2021-05-11] MEDS: cefTRIAXone SODIUM 2,000 MG in DEXTROSE 5% 50 ML IV SCH (10:04)
[2021-05-11 10:16] LABS: Lyme Ab IgG w/WB Rflx Negative (Negative); Lyme Ab IgM w/WB Rflx Negative (Negative)
[2021-05-12] MEDS: IBUPROFEN 600 MG TAB PO SCH ×2 (02:16→10:06)
[2021-05-12] MEDS: LEVOTHYROXINE SODIUM 137 MCG TABLET PO SCH (05:38)
[2021-05-12] MEDS ORDERED: VANCOMYCIN TROUGH ONE (07:30)
--- NOTE | 2021-05-12 08:16 | Hospitalist Progress Note ---
Date of Service May 12, 2021 Assessment & Plan (1) Septic olecranon bursitis of left elbow: Plan: Patient with presumed septic olecranon bursitis of the left elbow. Developed acutely several hours ago. No trauma, no skin breaks. He has history of prior staphylococcal skin/soft tissue infection and has been treated with IV antibiotics/PICC for this in the past. In ER, afebrile but noted temp 38C [employer], HD stable and non-toxic in appearance CRP 0.71 (ESR wnl 3), WBC 11.3k on admit Temp max 39.1C 05/10 overnight Continue Vanco/Ceftriaxone (day 2, started 05/10) Blood cultures pending Ortho consulted --> aspirated 05/10 & reported fluid was slightly inflammatory - was sent for gram stain, culture and cell count as well as crystal analysis. --> sudheer/bloody, elevated WBC 08780. Synovial crystals pending. Does not feel will require surgery but following along daily currently GS from drainage by ortho 05/10 pending -- no organisms, moderate WBC seen. Cx pin-point growth, re-incubating --> FOLLOW Pain control, supportive care Continue arm sling Continue to monitor -- he is hopeful for d/c on oral abx tomorrow (2) Hypothyroidism: Plan: Chronic. No prior TSH in our system, but follows with [facility] Continue Synthroid 137mcg daily (3) Hypokalemia: Plan: 3.2 on am labs, mag wnl PO replacement ordered BMP in AM (4) Constipation: Plan: Patient mentioned some bright red blood in stool after wiping on admission, and had reported this in the past. Denied constipation but reported BM every 2-3 days. F/u PCP recommended, also would rec checking TSH given hypothyroidism which could be contributing to "constipation", however suspect more hemorrhoidal bleeding no further bleeding reported --> rec f/u with PCP if continued. Will need to see if ever had c-scope in past/family history of issues (5) ADHD: Plan: Chronic -Continue home dextroamphetamine Plan: continued inpatient stay on abx, change to full admit patient hopeful cx resulted tomorrow and possible d/c on oral abx Admission and Anticipated Discharge Date Admission Date: May 11, 2021 Physical Exam Physical Exam: General: patient resting comfortably, NAD, non-toxic in appearance, AA&O , laying on side sleeping in bed HEENT: Normocephalic, atraumatic, mmm, pupils equal, early male pattern baldness CV: RRR, no m/r/g, no edema Resp: CTAB, no w/c/r, on room air GI: +BS throughout, soft, nontender : no hewitt Psych AOx3, cooperative MSK/Neuro: LEFT elbow with erythema, decreased swelling/fluctuance, wrapped with marni bandage, fingers mobile, NVI. ROM intact with minimal discomfort reported Skin: warm, dry, intact Results & Data Results & Data ([facility]) Vital Signs (Past 12 Hours) Vital Signs Temp Pulse Resp BP Pulse Ox 05/12/21 08:07 36.9 C 81 16 121/71 98 05/11/21 22:20 37.1 C 89 16 132/75 98 Laboratory Results 05/12/21 05/12/21 05/12/21 Range/Units 07:40 07:40 07:40 WBC 8.63 (4.8-10.8) K/uL RBC 4.53 L (4.7-6.1) M/uL Hgb 14.3 (14.0-18.0) g/dL Hct 41.6 L (42-52) % MCV 91.8 (80-100) fL MCH 31.6 (25-34) pg MCHC 34.4 (32-36) g/dL RDW Std Deviation 46.4 H (36.4-46.3) fL RDW Coeff of Cali 13.8 (11.5-14.5) % Plt Count 185 (130-400) K/uL MPV 9.7 (7.4-10.4) fL Immature Gran % (Auto) 0.1 % Neut % (Auto) 62.6 % Lymph % (Auto) 23.6 % [place] % (Auto) 11.5 % Eos % (Auto) 2.0 % Baso % (Auto) 0.2 % Neut # (Auto) 5.40 (1.4-6.5) K/uL Lymph # (Auto) 2.04 (1.2-3.4) K/uL [place] # (Auto) 0.99 H (0.11-0.59) K/uL Eos # (Auto) 0.17 (0-0.5) K/uL Baso # (Auto) 0.02 (0-0.2) K/uL Immature Gran # (Auto) 0.01 (0.00-0.02) K/uL Sodium 140 (136-145) mmol/L Potassium 3.5 (3.5-5.1) mmol/L Chloride 108 H (98-107) mmol/L Carbon Dioxide 26 (21-32) mmol/L Anion Gap 7.0 (3-11) BUN 12 (7-18) mg/dl Creatinine 0.95 (0.6-1.4) mg/dl Est Cr Clr Drug Dosing 120.4 ml/min Est GFR ( Amer) 116.4 ml/min Est GFR (Non-Af Amer) 100.4 ml/min BUN/Creatinine Ratio 12.1 (10-20) Glucose 98 (70-99) mg/dl Calcium 8.5 (8.5-10.1) mg/dl Magnesium (1.8-2.4) mg/dl Total Bilirubin Pending Direct Bilirubin 0.2 (0-0.2) mg/dl AST 23 (15-37) U/L ALT 52 (12-78) Alkaline Phosphatase Pending Total Protein Pending Albumin 3.3 L (3.4-5.0) gm/dl TSH Pending Vancomycin Trough 8.8 (See Comment) mcg/ml Lyme Disease IgG Ab (Negative) Lyme Disease IgM Ab (Negative) 05/11/21 05/10/21 Range/Units 06:55 13:40 WBC (4.8-10.8) K/uL RBC (4.7-6.1) M/uL Hgb (14.0-18.0) g/dL Hct (42-52) % MCV (80-100) fL MCH (25-34) pg MCHC (32-36) g/dL RDW Std Deviation (36.4-46.3) fL RDW Coeff of Cali (11.5-14.5) % Plt Count (130-400) K/uL MPV (7.4-10.4) fL Immature Gran % (Auto) % Neut % (Auto) % Lymph % (Auto) % [place] % (Auto) % Eos % (Auto) % Baso % (Auto) % Neut # (Auto) (1.4-6.5) K/uL Lymph # (Auto) (1.2-3.4) K/uL [place] # (Auto) (0.11-0.59) K/uL Eos # (Auto) (0-0.5) K/uL Baso # (Auto) (0-0.2) K/uL Immature Gran # (Auto) (0.00-0.02) K/uL Sodium (136-145) mmol/L Potassium (3.5-5.1) mmol/L Chloride (98-107) mmol/L Carbon Dioxide (21-32) mmol/L Anion Gap (3-11) BUN (7-18) mg/dl Creatinine (0.6-1.4) mg/dl Est Cr Clr Drug Dosing ml/min Est GFR ( Amer) ml/min Est GFR (Non-Af Amer) ml/min BUN/Creatinine Ratio (10-20) Glucose (70-99) mg/dl Calcium (8.5-10.1) mg/dl Magnesium 2.1 (1.8-2.4) mg/dl Total Bilirubin Direct Bilirubin (0-0.2) mg/dl AST (15-37) U/L ALT (12-78) Alkaline Phosphatase Total Protein Albumin (3.4-5.0) gm/dl TSH Vancomycin Trough (See Comment) mcg/ml Lyme Disease IgG Ab Negative (Negative) Lyme Disease IgM Ab Negative (Negative) PG Care Time/CCT Total # of Minutes Spent Total Time Spent with Patient: Total time spent is greater than 50% in coordination of care (as documented) at patient's floor/unit and/or counseling patient: Coding Diagnoses Septic olecranon bursitis of left elbow M71.122 Hypothyroidism E03.9 Hypokalemia E87.6 Constipation K59.00 ADHD F90.9
[2021-05-12 08:21] LABS: Basophils # (auto) 0.02 K/uL (0-0.2); Basophils % (auto) 0.2 %; Eosinophils # (auto) 0.17 K/uL (0-0.5); Hematocrit (blood only) 41.6 % (42-52); Hemoglobin 14.3 g/dL (14.0-18.0); Immature Granulocytes # (auto) 0.01 K/uL (0.00-0.02); Immature Granulocytes % (auto) 0.1 %; Lymphocytes # (auto) 2.04 K/uL (1.2-3.4); Lymphocytes % (auto) 23.6 %; Mean Corpuscular Hemoglobin 31.6 pg (25-34); Mean Corpuscular Hgb Conc 34.4 g/dL (32-36); Mean Corpuscular Volume 91.8 fL (80-100); Mean Platelet Volume 9.7 fL (7.4-10.4); Monocytes # (auto) 0.99 K/uL (0.11-0.59); Monocytes % (auto) 11.5 %; Neutrophils % (auto) 62.6 %; Platelet Count 185 K/uL (130-400); RDW Coefficient of Variation 13.8 % (11.5-14.5); RDW Standard Deviation 46.4 fL (36.4-46.3); Red Blood Count 4.53 M/uL (4.7-6.1); White Blood Count 8.63 K/uL (4.8-10.8)
[2021-05-12] MEDS: cefTRIAXone SODIUM 2,000 MG in DEXTROSE 5% 50 ML IV SCH (08:45)
[2021-05-12 08:48] LABS: Albumin Level 3.3 gm/dl (3.4-5.0); BUN Creatinine Ratio 12.1 (10-20); Bilirubin Direct 0.2 mg/dl (0-0.2); Calcium 8.5 mg/dl (8.5-10.1); Creatinine Clr Calc Pharmacy 120.4 ml/min; Est GFR (African American) 116.4 ml/min; Est GFR (Non-African American) 100.4 ml/min; Potassium 3.5 mmol/L (3.5-5.1)
[2021-05-12] MEDS: AMPHETAMINE ASP/SULF/DEXTRAMPH 20 MG TAB PO SCH ×2 (08:55→13:12)
[2021-05-12 08:58] LABS: Thyroid Stimulating Hormone 0.326 uIu/ml (0.300-4.500); Total Protein 7.2 gm/dl (6.4-8.2)
[2021-05-12 09:00] LABS: Bilirubin,Total 0.7 mg/dl (0.2-1)
[2021-05-12] MEDS ORDERED: VANCOMYCIN HCL 1,250 MG in SODIUM CHLORIDE 0.9% 250 ML IV STA (09:09)
--- NOTE | 2021-05-12 09:13 | Progress Notes ---
DATE OF SERVICE: 05/12/2021. SUBJECTIVE: A 41-year-old male admitted with a left septic olecranon bursitis. He is doing much bet ter today. Pain has improved significantly. Elbow motion is more comfortable. No other complaints. OBJECTIVE: VITAL SIGNS: Temperature 37.1. Vital signs are stable. EXTREMITIES: On physical examination of the left elbow reveals still a little redness around the ole cranon bursa area. There is a small fluid collection. He has got full elbow motion with pretty mini mal pain. He is neurologically intact. No ascending or alternative cellulitis. LABORATORY DATA: White cell count from yesterday was back to normal at 10.15. Culture results are p inpoint with growth present. Re-incubating. Blood cultures are no growth. ASSESSMENT: A 41-year-old male with a left septic olecranon bursitis, improved. PLAN: I am going to aspirate his olecranon bursa 1 more time today. I do think he is resolved enoug h that he could be converted to p.o. antibiotics. It will probably be best to send him out on Keflex 500 mg 4 times a day for 2 weeks along with likely some tetracycline to cover MRSA if needed. Prefe flavio would be BACTRIM, BUT HE IS ALLERGIC TO THAT. I need to see him in 2 weeks. I think it is oka y for discharge today on oral antibiotics. Any orthopedic questions can be directed to me at [phone]. DESCRIPTION OF PROCEDURE: The patient's left elbow was prepped with alcohol. I aspirated the olecra non bursa for about 3 mL of serosanguineous slightly bloody fluid. It was not inflammatory at all. Much improved from 2 days ago. An Markie bandage was applied. Job ID: [id number]
--- NOTE | 2021-05-12 09:17 | Pharmacy Report ---
Pharmacy Vanc AUC Short Note - Date of Service May 12, 2021 - Assessment & Plan Assessment 41 year old M receiving ceftriaxone and vancomycin for treatment of left elbow bursitis. * Patient has a history of MSSA infection in his leg from a spider bite approximately 5 years ago that required IV antibiotics. * Ortho aspirated 5 cc of inflammatory fluid from left elbow. Was sent for cultures, cell count and crystal analysis. No notable growth at this time * SCr and WBC stable Vancomycin * AUC/PEDRO LUIS is the preferred PK/PD target for vancomycin, goal 400-600 mcg/mL * AUC guided dosing is effective and associated with decreased risk of nephrotoxicity compared to traditional trough targets * Trough of 8.8 mcg/mL is indicative that the AUC goal will only occur with 59% certainty. Will therefore increase dose with estimated certainty of meeting AUC goal of 92% with an associated 10% risk of toxicity. * Repeat trough prior to 4th dose of new regimen Plan * Increase vancomycin from 1000 mg to 1250 mg IV q8h * Trough 05/13 @ 0930 Pharmacy will continue to follow and will adjust dose/frequency as necessary. Thank you.
--- NOTE | 2021-05-12 11:22 | Discharge Summary ---
Date of Service May 12, 2021 Admission HPI Per Admitting Provider Gordo Lombardi is a 41yo male presenting with acute swelling and pain of the left elbow. Patient states he has been feeling slightly ill for the last couple days, fatigued with poor sleep. He developed acute pain in his left elbow overnight last night. When he woke he noted significant swelling, redness, fluctuance and pain in his left elbow. He had a fever x 1 prior to arrival measured at 38. No additional complaints Patient with history of staph infections. In 2014 he had what he thought to be a spider bite on his left thigh and developed a large abscess. He was treated with Bactrim DS and subsequently developed a rash. He was admitted to [facility] in August 2015 for septic arthritis of the right knee with superficial cellulitis and abscess. He was evaluated by ID and treated with Daptomycin inpatient and discharged with a PICC line to complete the antibiotic course. He had a TTE performed which was negative for vegetation. Upon arrival to the ER patient afebrile, HD stable, NAD ER Course: Ceftriaxone, Vancomycin Admission Exam Per Admitting Provider General: patient resting comfortably, NAD, non-toxic in appearance, AA&O x 4 Skin: warm, dry, intact HEENT: NC/AT, PERRL, EOMI, anicteric sclera, conjunctiva without injection, external ear normal to inspection and nontender, nares patent, moist mucus membranes, dentition intact, no oropharyngeal lesions, neck supple, trachea midline, no LAD, no thyromegaly, no JVD Heart: +S1/S2, regular, no m/r/g Lungs: equal air entry bilaterally, no rales/rhonchi/wheezes Abd: +BS, soft, NT/ND, no masses/organomegaly/ascites Ext: warm, 2+ pulses in UE/LE bilaterally, no clubbing/cyanosis or edema Neuro: nonfocal, patient AA&O x 4, speech intact, no facial droop, moving all extremities on command with equal strength 5/5 Left elbow with redness, swelling and fluctuance, tenderness to palpation Full ROM with minimal discomfort with movement No streaking, crepitus, bullae Principal Diagnosis Septic Olecranon Bursitis Discharge Exam General: patient resting comfortably, NAD, non-toxic in appearance, AA&O , laying on side sleeping in bed upon arrival to room HEENT: Normocephalic, atraumatic, mmm, pupils equal, early male pattern bal dness CV: RRR, no m/r/g, no edema Resp: CTAB, no w/c/r, on room air GI: +BS throughout, soft, non-tender : no Nielsen Psych: AOx3, cooperative MSK/Neuro: LEFT elbow with erythema, decreased swelling/fluctuance, wrapped with markie bandage, fingers mobile, NVI. ROM intact with minimal discomfort reported. no focal deficit Skin: warm, dry, intact Discharge Data Allergies Allergy/AdvReac Type Severity Reaction Status Date / Time Bactrim Allergy Intermediate became Unverified 08/21/15 22:55 completely red sulfamethoxazole [Bactrim] Allergy Intermediate became Unverified 05/10/21 14:52 completely red trimethoprim [Bactrim] Allergy Intermediate became Unverified 05/10/21 14:52 completely red Consultations 05/10/21 14:14 Consult Orthopedic Surgery Stat 05/10/21 14:22 ED Decision to Admit Stat Ordered Studies Elbow X-Ray 05/10/21 12:57 XR elbow LT 2V CLINICAL HISTORY: Edematous, painful. Cellulitis vs septic joint. COMPARISON STUDY: No previous studies for comparison. TECHNIQUE: 2 left elbow views FINDINGS: Bones: There is no evidence for an acute fracture or dislocation. There is no lytic or blastic lesion. Joints: The joint spaces are maintained. There is no evidence for an intra- articular effusion or elevation of the fat pads. The bones are in anatomic alignment. Soft tissues: There is diffuse subcutaneous swelling surrounding the elbow particularly posteriorly. These findings are suspicious for the presence of olecranon bursitis. There is no radiopaque foreign body. IMPRESSION: No acute osseous pathology. No intra-articular effusion to suggest septic arthritis. Findings characteristic of olecranon bursitis are present. ACT 112: Negative or not required by law. Electronically signed by: Dl Gaytan M.D. 05/10/2021 1:17 PM Hospital Course (1) Septic olecranon bursitis of left elbow: Patient with presumed septic olecranon bursitis of the left elbow. Developed acutely several hours prior to presentation to ER. No trauma, no skin breaks. He has history of prior staphylococcal skin/soft tissue infection and has been treated with IV antibiotics/PICC for this in the past. In ER, afebrile but noted temp 38C [employer], HD stable and non-toxic in appearance CRP 0.71 (ESR wnl 3), WBC 11.3k on admit Temp max 39.1C 05/10 overnight Xray imaging DID NOT have intra-articular effusion to suggest septic arthritis, but rather consistent with olecranon bursitis Placed on Vanco/Ceftriaxone while inpatient Orthopedics consulted, Dr Colon --> s/p aspiration 05/10 and reported fluid slightly inflammatory. Repeat aspiration again morning of d/c for 3mL on 05/12 without plans/needs for surgical debridement/bursectomy and felt stable for d/c on 2 wks oral abx Aspirated fluid with elevated WBC. Cx with pin-point growth (GS with no organisms, moderate WBC, re-incubating at time of discharge as well as crystal analysis. ) Bcx NGTD after 48 hours Due to history of staph, decision to cover for both staph/strep at discharge with KEFLEX QID and DOXYCYCLINE BID (give prior reaction to Bactrim turning whole body red after 1 week of use) for a total treatment duration of 14 days. To have follow up with orthopedics in the next 2 weeks to monitor progress. (2) Hypothyroidism: Chronic. No prior TSH in our system, but follows with [facility] . TSH 0.326, low end of normal and would rec repeat testing outpatient with PCP for adjustments but has been continued on his usual Synthroid 137mcg daily (3) Hypokalemia: 3.2 on am labs, mag wnl PO replacement ordered and wnl on repeat (4) Constipation: Patient mentioned some bright red blood in stool after wiping on admission, and had reported this in the past. Denied constipation but reported BM every 2-3 days. F/u PCP recommended, also would rec checking TSH given hypothyroidism which could be contributing to "constipation", however suspect more hemorrhoidal bleeding no further bleeding reported --> rec f/u with PCP if continued and recommended c-scope for further evaluation rec'd bowel regimen at discharge/increased fiber (5) ADHD: Chronic -Continued home dextroamphetamine discharged with doxy/keflex to complete 2 week course and will need follow up with Dr. Colon in next 2 weeks. F/u with PCP in next 7-10 days to monitor progress. If continued issues, not completely resolved, could consider extending abx course for 21 days Total Time Total Time Spent Total Time Spent (In Minutes): 45 Discharge Plan Discharge Items Patient Disposition: Home - Self-Care Reason For Visit: BURSITIS, FEVER Discharge Diagnosis: Septic Olecranon Bursitis Goals: You have been hospitalized for an acute medical problem. During your stay at [facility], we have made an effort to correct the problem that brought you to the hospital while keeping you as comfortable as possible. Medications were used to bring your condition under control and your discharge instructions will include directions for any medications you should take after leaving the hospital. Please make sure you see your Primary Care Provider as part of your follow up plan. Activity: Per Instructions section Activity Comment: No aggressive elbow motion. Non-emergency contact: Primary Care Provider and Surgeon Call non-emergency contact if: you have any medication questions, your symptoms worsen, your pain is not controlled and you have a fever Follow-up/Referrals: Ann Prieto CRNP [Primary Care Provider] - Oscar Colon MD [Physician] - (ORthopedic follow-up 2 weeks.) Diet: Regular Addtl Attending Provider Instructions: You have been hospitalized for septic olecranon bursitis. You were treated with IV antibiotics and orthopedics, Dr Colon, was consulted. They aspirated fluid and culture has pin-point growth at this time. Given your history of staph, it is recommended to continue treatment with Doxycycline 100mg by mouth TWICE daily (drink with full glass of water) along with Keflex 500mg FOUR TIMES DAILY for a total treatment duration of 14 days. You have already received 2 days of IV antibiotics, and should continue tonight's dose at home along with an additional 12 days. You will need to have follow up with orthopedics in 2 weeks. If you do not hear from them, please call their office at [phone]. They can determine based on progress if you should have this extended for an additional week. Please follow up with Dr Colon in 2 weeks, your PCP in the next 7-10 days to monitor your progress after hospitalization. Please return to the emergency department with any fever, increased pain, redness or drainage, or for any other symptoms concerning for you. It has been a pleasure being a part of the medical team providing for you while you have been in the hospital. Take care! Pending Studies at Discharge: Yes Studies:: Fluid culture -- pin-point growth, fluid analysis Blood cultures -- no growth to date Stand-Alone Forms: My [facility] Medications and DC Order Prescriptions: New cephalexin 500 mg capsule 500 mg PO QID 12 Days Qty: 50 RF: 0 doxycycline hyclate 100 mg capsule 100 mg PO BID 12 Days Qty: 25 RF: 0 Continued levothyroxine 137 mcg tablet 137 mcg PO QAM RF: 0 dextroamphetamine-amphetamine 20 mg tablet 20 mg PO TID RF: 0 finasteride 1 mg tablet 1 mg PO QAM RF: 0 Discharge Orders: Discharge Order (Routine); Ordered 05/12/21 Ordered By: Edwige Roldan Admission Data Admit Date/Time: 05/11/21 13:19 Attending Provider: Amira Zaldivar Admit Provider: Ирина Colon Primary Care Provider: Ann Prieto Other Providers: Oscar Colon ; Ириан Colon Other Interventions: Discharge Summary Assessment (RN) Last Done: 05/12/21 11:44 Supervising Physician Co-Signing Physician Notes PA Supervision Note: I personally saw and examined the patient. I verified all cheney points and agree with NANCY Roldan with the following exceptions and/or additions: S-patient feeling much better, has a little bit of soreness in the elbow after second aspiration by orthopedics today. Otherwise no more fevers and chills. No chest pain or shortness of breath, no abdominal pain or diarrhea. He is ready to go home. He is ambulating around the room without difficulty O- Vitals reviewed Gen: AAOx3, NAD HEENT: Anicteric sclerae, EOMI CV: RRR no mgr nl S1S2 Pulm: CTAB no wcr Abd: +BS soft NT ND no masses or hernias Ext: No edema, left elbow and compression Markie wrap not removed Skin: No rashes, warm/dry Neuro: Full strength throughout A/H-67-vttm-old male here with left septic olecranon bursitis, now improving, cultures with pinpoint growth not finalized prior to discharge, but stable for discharge home on broad-spectrum antibiotics p.o. with Keflex and doxycycline to cover for staph and strep. Will call him with final results of culture when available Follow-up with orthopedics within 2 weeks. Coding Level of Care Code D/C DAY MANAGEMENT >30 MINS Diagnoses Septic olecranon bursitis of left elbow M71.122 Hypothyroidism E03.9 Hypokalemia E87.6 Constipation K59.00 ADHD F90.9
[2021-05-12] MEDS ORDERED: VANCOMYCIN HCL 1,250 MG in SODIUM CHLORIDE 0.9% 250 ML IV SCH (18:00)
[2021-05-13] MEDS ORDERED: VANCOMYCIN TROUGH ONE (09:30)
== END 2021-05-12 13:53 | disposition home or self-care (01) | DRG 558 ==
LOC: ED 12:26 → 3E 12:26 → SUATTDRO 14:48 → 3E 17:21